=== PATIENT | female | born 1975 | race Caucasian/White ===

== ENCOUNTER 2018-10-04 15:18 | Emergency (ER) | payer MEDICAID ==
[~2018-10-04] VITALS: Ht 165.1 cm; Wt 124.5 kg
[2018-10-04 15:28] VITALS: BP 159/102
--- NOTE | 2018-10-04 15:33 | NUR ---
Dayton zuñiga in [facility] - 10/04/18 at 1534 by TEODORA PT AMBULATED TO CHAIR B AT THIS TIME
--- NOTE | 2018-10-04 15:34 | NUR ---
PT AMBULATED TO CHAIR E AT THIS TIME
--- NOTE | 2018-10-04 15:39 | NUR ---
C/O PLANTAR FASCIATIS AND BONE SPURS IN BL FEET, BUT STATES THAT LT FOOT HAS MORE PAIN. PT REPORTS INTERMITENT SHARP PAIN AT 10/10. PT DENEIS TRAUMA. +EDEMA, -ERYTHEMA. STATES SHE HAS NOT RECV'D PAIN MEDICATION FOR PAIN. MEDHX:HTN
--- NOTE | 2018-10-04 15:58 | NUR ---
PT STATES SHE HAS HAD HER TUBES TIED
--- NOTE | 2018-10-04 15:59 | NUR ---
PT AMBULATED TO ER BED 12
--- NOTE | 2018-10-04 16:50 | NUR ---
PATIENT LEFT WITHOUT BEING SEEN BY DR. BARRERA. NO FURTHER CARE PROVIDED FOR PATIENT.
== END 2018-10-04 16:50 | disposition left against medical advice (07) ==
LOC: MED 15:18
DX: M72.2 Plantar fascial fibromatosis (principal); Z53.21 Procedure and treatment not carried out due to patient leaving prior to being seen by health care provider

== ENCOUNTER 2018-11-15 14:38 | Emergency (ER) | payer MEDICAID ==
[~2018-11-15] VITALS: Ht 165.1 cm; Wt 124.3 kg
[2018-11-15 14:46] VITALS: BP 121/74
--- NOTE | 2018-11-15 15:38 | NUR ---
Patient ambulated to bed 6
--- NOTE | 2018-11-15 15:50 | NUR ---
PT BIB SELF C/O BEE STING X 2 DAYS. PT REPORTS SWELLING AND BURNING PAIN HAVE BEEN INCREASING SINCE BEE STING ON FRIDAY. PT REPORTS 5/10 BURNING PAIN. VSS. ER TO SEE PT. MEDHX:HTN RX:BP MEDS
[2018-11-15] MEDS ORDERED: hydrOXYzine HCL 25 MG TAB PO ONE (16:25)
[2018-11-15] MEDS ORDERED: diphenhydrAMINE 50 MG/ML VIAL IM ONE (16:25)
[2018-11-15] MEDS ORDERED: FAMOTIDINE 20 MG TAB PO ONE (16:25)
[2018-11-15] MEDS ORDERED: DEXAMETHASONE 10 MG/ML VIAL IM ONE (16:25)
[2018-11-15 17:33] VITALS: BP 126/74
== END 2018-11-15 17:33 | disposition home or self-care (01) ==
LOC: MED 14:38 → MLD 17:30 → MED 17:33
DX: T63.441A Toxic effect of venom of bees, accidental (unintentional), initial encounter (principal); I10 Essential (primary) hypertension; Y92.89 Other specified places as the place of occurrence of the external cause
CPT/HCPCS: 96372; 99283; J1100; J1200

== ENCOUNTER 2022-03-31 18:22 | Emergency (ER) | payer MEDICAID ==
[~2022-03-31] VITALS: Ht 165.1 cm; Wt 131.5 kg
[2022-03-31 18:40] VITALS: BP 201/93
--- NOTE | 2022-03-31 18:45 | NUR ---
PT AMBULATED BACK TO LOBBY AFTER TRIAGE
--- NOTE | 2022-03-31 21:25 | NUR ---
PT CALLED FROM INSIDE LOBBY AND OUTSIDE, NO RESPONSE
[2022-03-31 21:30] VITALS: BP 201/93
--- NOTE | 2022-03-31 21:30 | NUR ---
PATIENT LEFT WITHOUT BEING SEEN BY DR. BONNER. NO FURTHER CARE PROVIDED FOR PATIENT.
--- NOTE | 2022-03-31 21:30 | NUR ---
PTs PERSONAL PHONE CALLED, NO ANSWER
== END 2022-03-31 21:25 | disposition left against medical advice (07) ==
LOC: MED 18:22
DX: M79.662 Pain in left lower leg (principal); Z53.21 Procedure and treatment not carried out due to patient leaving prior to being seen by health care provider

== ENCOUNTER 2022-04-02 04:03 | Emergency (ER) | payer MEDICAID, OTHER ==
[~2022-04-02] VITALS: Ht 165.1 cm; Wt 131.5 kg
[2022-04-02 04:45] VITALS: BP 185/115
--- NOTE | 2022-04-02 04:57 | NUR ---
TO BED 8
[2022-04-02] MEDS ORDERED: KETOROLAC 15 MG/ML VIAL IM ONE (05:40)
[2022-04-02] MEDS ORDERED: LID5T TP (05:47)
[2022-04-02] MEDS ORDERED: DICL100G31 TP (05:47)
[2022-04-02 06:20] VITALS: BP 185/115
--- NOTE | 2022-04-02 06:20 | NUR ---
Patient discharged with v/s stable. Written and verbal after care instructions given and explained. Patient alert, oriented and verbalized understanding of instructions. Ambulatory with steady gait. All questions addressed prior to discharge. ID band removed. Patient advised to follow up with PMD. Rx of LIDODERM,DICLOFENAC given. Patient educated on indication of medication including possible reaction and side effects. Opportunity to ask questions provided and answered.
== END 2022-04-02 06:20 | disposition home or self-care (01) ==
LOC: MED 04:03
DX: S89.92XA Unspecified injury of left lower leg, initial encounter (principal); I10 Essential (primary) hypertension; E11.9 Type 2 diabetes mellitus without complications; Z79.4 Long term (current) use of insulin; Z79.899 Other long term (current) drug therapy; W18.30XA Fall on same level, unspecified, initial encounter; Y93.89 Activity, other specified; Y92.89 Other specified places as the place of occurrence of the external cause; Y99.8 Other external cause status
CPT/HCPCS: 96372; 99283; J1885

== ENCOUNTER 2023-04-05 11:46 | Emergency (ER) | payer MEDICAID, OTHER ==
[~2023-04-05] VITALS: Ht 165.1 cm; Wt 138.9 kg
[~2023-04-05 11:46] MED LIST: DICL100G31 TP; LID5T TP
[2023-04-05 12:26] VITALS: BP 135/112; PULSE 110; RESP 19; TEMP 98.5; O2SAT 98
[2023-04-05] MEDS ORDERED: IBUP-2213 PO (14:55)
[2023-04-05] MEDS ORDERED: KETOROLAC 30 MG/ML VIAL IM ONE (14:55)
[2023-04-05 15:00] VITALS: BP 135/112; PULSE 110; RESP 19; TEMP 98.5; O2SAT 98
== END 2023-04-05 15:00 | disposition home or self-care (01) ==
LOC: MED 11:46
DX: R51.9 Headache, unspecified (principal); H92.02 Otalgia, left ear; I10 Essential (primary) hypertension
CPT/HCPCS: 70480; 99284

== ENCOUNTER 2023-05-14 13:48 | Inpatient (IN) | payer MEDICAID ==
[~2023-05-14] VITALS: Ht 165.1 cm; Wt 144.7 kg
[~2023-05-14 13:48] MED LIST changes: +IBUP-2213 PO
[2023-05-14 14:24] VITALS: BP 150/99; PULSE 118; RESP 17; TEMP 97.4; O2SAT 98
[2023-05-14 15:46] LABS: FLU A ANTIGEN negative (NEGATIVE); FLU B ANTIGEN NEGATIVE (NEGATIVE)
[2023-05-14] MEDS ORDERED: ONDANSETRON 4 MG/2 ML VIAL IVP ONE (16:45)
[2023-05-14] MEDS ORDERED: KETOROLAC 30 MG/ML VIAL IVP ONE (16:45)
[2023-05-14] MEDS ORDERED: NACL 0.9% 1,000 ML IV SCH (16:45)
[2023-05-14 17:44] LABS: HEMOGLOBIN 13.9 g/dL (12.0-16.0); MEAN CORPUSCULAR HEMOGLOBIN 29 pg (27-31); MEAN CORPUSCULAR HGB CONC 33 g/dL (33-37); MEAN CORPUSCULAR VOLUME 87.3 fL (80-94); PLATELET COUNT (AUTO) 173 K/uL (140-450); RED BLOOD CELL COUNT(AUTO) 4.81 MIL/uL (4.20-5.40); RED CELL DISTRIBUTION WIDTH 14.4 % (11.6-13.7)
[2023-05-14 17:51] LABS: APPEARANCE,URINE CLOUDY (CLEAR); BILIRUBIN,URINE 1+ (NEGATIVE); BLOOD, URINE 3+ (NEGATIVE); COLOR,URINE BROWN (YELLOW); LEUKOCYTE ESTERASE ,URINE 2+ (NEGATIVE); NITRITE, URINE POSITIVE (NEGATIVE); PH,URINE 5.5 (5.0-9.0); PROTEIN,URINE 3+ (NEGATIVE); UGLUCOSE NEGATIVE (NEGATIVE); UROBILINOGEN,URINE 0.2 EU/dL (0.2 - 1)
[2023-05-14] MEDS ORDERED: cefTRIAXone 2,000 MG in DEXTROSE 5% 100 ML IV ONE (17:55)
[2023-05-14 18:02] LABS: ANION GAP 18.6 (8-16); CALCIUM 8.3 mg/dL (8.5-10.1); CARBON DIOXIDE 23.3 mmol/L (21-32); CREATININE 1.8 mg/dL (0.6-1.3); POTASSIUM 3.9 mmol/L (3.5-5.1)
[2023-05-14 18:06] LABS: ALBUMIN 2.4 g/dL (3.4-5.0); BACTERIA,URINE 10-30 (MOD) /HPF (None Seen); BILIRUBIN,DIRECT 0.7 mg/dL (0.0-0.3); RBC,URINE 20-50 /HPF (0-5); SQUAMOUS EPITHELIAL CELL,UR 4-10 (MOD) /LPF (0-3 (FEW)); TOTAL BILIRUBIN 1.5 mg/dL (0.0-1.0); TOTAL PROTEIN, SERUM 6.8 g/dL (6.4-8.2)
[2023-05-14 18:08] LABS: ICTOTEST NEGATIVE (NEGATIVE)
[2023-05-14 18:20] LABS: LYMPHOCYTES % (MANUAL) 1 % (20-46); METAMYELOCYTES % 2 % (0-0); MONOCYTES % (MANUAL) 4 % (5-12); PLATELET ESTIMATE ADEQUATE; PROMYELOCYTES % 6 % (0-0)
[2023-05-14] MEDS ORDERED: NACL 0.9% 2,000 ML IV ONE (19:00)
[2023-05-14] MEDS ORDERED: cefTRIAXone 1,000 MG VIAL ONE (19:06)
[2023-05-14 19:40] LABS: LACTIC ACID 4.2 mmol/L (0.4-2.0)
[2023-05-14] MEDS: NACL 0.9% 1,000 ML IV SCH (19:40)
[2023-05-14] MEDS ORDERED: DEXTROSE 50% 50 ML SYR IVP PRN (19:40)
[2023-05-14] MEDS ORDERED: LORazepam 1 MG TAB PO PRN (19:40)
[2023-05-14] MEDS ORDERED: ALBUTEROL 0.083% 2.5 MG/3 ML NEBU INH PRN (19:40)
[2023-05-14] MEDS ORDERED: ONDANSETRON 4 MG/2 ML VIAL IVP PRN (19:40)
[2023-05-14] MEDS ORDERED: ACETAMINOPHEN 325 MG TAB PO PRN (19:40)
[2023-05-14] MEDS ORDERED: cefTRIAXone 2,000 MG VIAL ONE (19:46)
[2023-05-14] MEDS: BLOOD GLUCOSE MONITORING 1 DEV DEV FS SCH (21:54)
[2023-05-14] MEDS ORDERED: PIPERACILLIN/TAZOBACTAM 3.375 GM VIAL IV ONE (22:17)
[2023-05-14] MEDS: PIPERACILLIN/TAZOBACTAM 3.375 GM in DEXTROSE 5% 50 ML IV SCH (22:38)
[2023-05-15] VITALS (7 sets, daily range): BP systolic 110–125; BP diastolic 59–76; PULSE 100–119; RESP 18–19; TEMP 97.2–98.1; O2SAT 90–95
[2023-05-15] MEDS: HYDROcodone/APAP 5/325 MG 1 TAB TAB PO PRN ×3 (02:20→14:32)
[2023-05-15] MEDS ORDERED: PIPERACILLIN/TAZOBACTAM 3.375 GM VIAL IV ONE (04:45)
[2023-05-15] MEDS: PIPERACILLIN/TAZOBACTAM 3.375 GM in DEXTROSE 5% 50 ML IV SCH ×3 (05:09→22:48)
[2023-05-15] MEDS: NACL 0.9% 1,000 ML IV SCH ×2 (05:40→15:40)
[2023-05-15] MEDS: BLOOD GLUCOSE MONITORING 1 DEV DEV FS SCH ×4 (07:20→20:40)
[2023-05-15 07:23] LABS: BASOPHILS % (AUTO) 0.2 % (0.0-2.0); EOSINOPHILS # (AUTO) 0.1 K/uL (0-0.4); EOSINOPHILS % (AUTO) 0.6 % (0.0-4.0); HEMATOCRIT 36.2 % (36-48); HEMOGLOBIN 12.1 g/dL (12.0-16.0); LYMPHOCYTES # (AUTO) 0.4 K/uL (2.5-16.5); LYMPHOCYTES % (AUTO) 2.3 % (20.5-51.1); MEAN CORPUSCULAR HEMOGLOBIN 29 pg (27-31); MEAN CORPUSCULAR HGB CONC 33 g/dL (33-37); MEAN CORPUSCULAR VOLUME 86.9 fL (80-94); MONOCYTES # (AUTO) 0.7 K/uL (0.8-1.0); MONOCYTES % (AUTO) 4.6 % (1.7-9.3); NEUTROPHILS # (AUTO) 14.3 K/uL (1.8-7.7); NEUTROPHILS % (AUTO) 92.3 % (42.2-75.2); PLATELET COUNT (AUTO) 121 K/uL (140-450); RED BLOOD CELL COUNT(AUTO) 4.17 MIL/uL (4.20-5.40); RED CELL DISTRIBUTION WIDTH 14.2 % (11.6-13.7); WHITE BLOOD COUNT (AUTO) 15.5 K/uL (4.8-10.8)
[2023-05-15 07:48] LABS: ANION GAP 15.9 (8-16); CALCIUM 7.6 mg/dL (8.5-10.1); CARBON DIOXIDE 24.8 mmol/L (21-32); CREATININE 2.1 mg/dL (0.6-1.3); POTASSIUM 3.7 mmol/L (3.5-5.1)
[2023-05-15] MEDS: MORPHINE SULFATE 2 MG/ML SYR IVP PRN ×2 (09:21→18:12)
[2023-05-15] MEDS: TAMSULOSIN 0.4 MG CAP PO SCH (14:34)
[2023-05-16] MEDS: NACL 0.9% 1,000 ML IV SCH ×3 (01:40→21:09)
[2023-05-16 04:00] VITALS: BP 131/80; PULSE 102; RESP 19; TEMP 98.1; O2SAT 91
[2023-05-16] MEDS: PIPERACILLIN/TAZOBACTAM 3.375 GM in DEXTROSE 5% 50 ML IV SCH ×3 (06:02→21:19)
[2023-05-16] MEDS: BLOOD GLUCOSE MONITORING 1 DEV DEV FS SCH ×4 (06:28→20:07)
[2023-05-16 06:49] LABS: BASOPHILS % (AUTO) 0.2 % (0.0-2.0); EOSINOPHILS # (AUTO) 0.2 K/uL (0-0.4); EOSINOPHILS % (AUTO) 1.3 % (0.0-4.0); HEMATOCRIT 34.3 % (36-48); HEMOGLOBIN 11.5 g/dL (12.0-16.0); LYMPHOCYTES # (AUTO) 0.7 K/uL (2.5-16.5); LYMPHOCYTES % (AUTO) 4.6 % (20.5-51.1); MEAN CORPUSCULAR HEMOGLOBIN 29 pg (27-31); MEAN CORPUSCULAR HGB CONC 33 g/dL (33-37); MEAN CORPUSCULAR VOLUME 86.4 fL (80-94); MONOCYTES # (AUTO) 0.7 K/uL (0.8-1.0); MONOCYTES % (AUTO) 4.7 % (1.7-9.3); NEUTROPHILS # (AUTO) 13.2 K/uL (1.8-7.7); NEUTROPHILS % (AUTO) 89.2 % (42.2-75.2); PLATELET COUNT (AUTO) 108 K/uL (140-450); RED BLOOD CELL COUNT(AUTO) 3.97 MIL/uL (4.20-5.40); RED CELL DISTRIBUTION WIDTH 14.4 % (11.6-13.7); WHITE BLOOD COUNT (AUTO) 14.8 K/uL (4.8-10.8)
[2023-05-16 07:11] LABS: ANION GAP 14.5 (8-16); CALCIUM 7.9 mg/dL (8.5-10.1); CARBON DIOXIDE 22.9 mmol/L (21-32); CREATININE 1.6 mg/dL (0.6-1.3); POTASSIUM 3.4 mmol/L (3.5-5.1)
[2023-05-16 08:00] VITALS: BP 132/78; PULSE 103; RESP 18; TEMP 98.5; O2SAT 92
[2023-05-16] MEDS ORDERED: POTASSIUM CHLORIDE 10 MEQ TABER PO SCH (08:30)
[2023-05-16] MEDS: TAMSULOSIN 0.4 MG CAP PO SCH (08:45)
[2023-05-16] MEDS: MORPHINE SULFATE 2 MG/ML SYR IVP PRN (11:45)
[2023-05-16] MEDS: INSULIN LISPRO SLIDING SCALE 100 UNITS/ML VIAL SUBQ PRN ×2 (11:47→20:33)
[2023-05-16 16:00] VITALS: BP 164/88; PULSE 113; RESP 18; TEMP 97.9; O2SAT 93
[2023-05-16 20:00] VITALS: BP 130/75; PULSE 102; PULSE 104; RESP 18; RESP 19; TEMP 98.7; O2SAT 100; O2SAT 91
[2023-05-16 20:52] VITALS: PULSE 117; RESP 18; O2SAT 98; O2SAT 99
[2023-05-17 04:00] VITALS: BP 138/77; PULSE 100; RESP 19; TEMP 97.8; O2SAT 100
[2023-05-17] MEDS: PIPERACILLIN/TAZOBACTAM 3.375 GM in DEXTROSE 5% 50 ML IV SCH ×3 (04:44→21:37)
[2023-05-17] MEDS: MORPHINE SULFATE 2 MG/ML SYR IVP PRN ×2 (06:13→17:56)
[2023-05-17] MEDS: BLOOD GLUCOSE MONITORING 1 DEV DEV FS SCH ×4 (06:31→21:39)
[2023-05-17] MEDS: INSULIN LISPRO SLIDING SCALE 100 UNITS/ML VIAL SUBQ PRN ×3 (06:33→21:39)
[2023-05-17 07:24] LABS: BASOPHILS % (AUTO) 0.2 % (0.0-2.0); EOSINOPHILS # (AUTO) 0.1 K/uL (0-0.4); EOSINOPHILS % (AUTO) 1.1 % (0.0-4.0); HEMATOCRIT 35.9 % (36-48); HEMOGLOBIN 12.1 g/dL (12.0-16.0); LYMPHOCYTES # (AUTO) 0.8 K/uL (2.5-16.5); LYMPHOCYTES % (AUTO) 6.4 % (20.5-51.1); MEAN CORPUSCULAR HEMOGLOBIN 29 pg (27-31); MEAN CORPUSCULAR HGB CONC 34 g/dL (33-37); MEAN CORPUSCULAR VOLUME 85.8 fL (80-94); MONOCYTES # (AUTO) 1.1 K/uL (0.8-1.0); MONOCYTES % (AUTO) 9.5 % (1.7-9.3); NEUTROPHILS % (AUTO) 82.8 % (42.2-75.2); PLATELET COUNT (AUTO) 120 K/uL (140-450); RED BLOOD CELL COUNT(AUTO) 4.19 MIL/uL (4.20-5.40); RED CELL DISTRIBUTION WIDTH 14.4 % (11.6-13.7)
[2023-05-17 07:35] LABS: ANION GAP 11.6 (8-16); CARBON DIOXIDE 24.6 mmol/L (21-32); CREATININE 1.1 mg/dL (0.6-1.3); POTASSIUM 3.2 mmol/L (3.5-5.1)
[2023-05-17 08:00] VITALS: BP 154/89; PULSE 102; PULSE 95; RESP 18; RESP 19; TEMP 97.8; O2SAT 91; O2SAT 93
[2023-05-17] MEDS ORDERED: POTASSIUM CHLORIDE 10 MEQ TABER PO SCH (08:45)
[2023-05-17] MEDS ORDERED: SODIUM CHLORIDE 1 GM TAB PO SCH (08:45)
[2023-05-17] MEDS ORDERED: POTASSIUM CHLORIDE 10 MEQ TABER PO ONE ×2 (09:05→10:40)
[2023-05-17] MEDS ORDERED: FUROSEMIDE 20 MG/2 ML VIAL IVP SCH (09:30)
[2023-05-17] MEDS: TAMSULOSIN 0.4 MG CAP PO SCH (09:33)
[2023-05-17 20:00] VITALS: BP 146/79; PULSE 100; RESP 19; TEMP 98; O2SAT 92
[2023-05-17 20:30] VITALS: O2SAT 98
[2023-05-18 04:00] VITALS: BP 155/92; PULSE 98; RESP 19; TEMP 97.4; O2SAT 98
[2023-05-18] MEDS: PIPERACILLIN/TAZOBACTAM 3.375 GM in DEXTROSE 5% 50 ML IV SCH ×3 (05:10→20:34)
[2023-05-18] MEDS: INSULIN LISPRO SLIDING SCALE 100 UNITS/ML VIAL SUBQ PRN ×2 (06:43→20:37)
[2023-05-18] MEDS: BLOOD GLUCOSE MONITORING 1 DEV DEV FS SCH ×4 (06:44→20:38)
[2023-05-18 08:00] VITALS: PULSE 101; RESP 20; O2SAT 96
[2023-05-18 09:11] LABS: ANION GAP 8.6 (8-16); CALCIUM 8.1 mg/dL (8.5-10.1); CARBON DIOXIDE 27.5 mmol/L (21-32); CREATININE 0.9 mg/dL (0.6-1.3); POTASSIUM 3.1 mmol/L (3.5-5.1)
[2023-05-18] MEDS ORDERED: POTASSIUM CHLORIDE 10 MEQ TABER PO ONE (09:40)
[2023-05-18] MEDS: TAMSULOSIN 0.4 MG CAP PO SCH (10:08)
[2023-05-18 13:27] VITALS: BP 145/85; PULSE 101; RESP 19; TEMP 97.8; O2SAT 96
[2023-05-18] MEDS: CLONIDINE HYDROCHLORIDE 0.1 MG TAB PO PRN (18:08)
[2023-05-18 20:00] VITALS: BP 152/90; PULSE 101; RESP 20; TEMP 97.6; O2SAT 97
[2023-05-18 20:53] VITALS: PULSE 95; RESP 22; O2SAT 94
[2023-05-19 04:00] VITALS: BP 170/84; PULSE 87; RESP 18; TEMP 97.9; O2SAT 97
[2023-05-19] MEDS: PIPERACILLIN/TAZOBACTAM 3.375 GM in DEXTROSE 5% 50 ML IV SCH (04:51)
[2023-05-19] MEDS: CLONIDINE HYDROCHLORIDE 0.1 MG TAB PO PRN ×2 (05:04→17:06)
[2023-05-19 06:28] LABS: BASOPHILS # (AUTO) 0.1 K/uL (0.00-0.22); BASOPHILS % (AUTO) 0.3 % (0.0-2.0); EOSINOPHILS # (AUTO) 0.2 K/uL (0-0.4); HEMATOCRIT 36.3 % (36-48); HEMOGLOBIN 12.3 g/dL (12.0-16.0); LYMPHOCYTES # (AUTO) 1.5 K/uL (2.5-16.5); LYMPHOCYTES % (AUTO) 7.4 % (20.5-51.1); MEAN CORPUSCULAR HEMOGLOBIN 28 pg (27-31); MEAN CORPUSCULAR HGB CONC 34 g/dL (33-37); MEAN CORPUSCULAR VOLUME 84.1 fL (80-94); MONOCYTES # (AUTO) 2.5 K/uL (0.8-1.0); MONOCYTES % (AUTO) 12.6 % (1.7-9.3); NEUTROPHILS # (AUTO) 15.7 K/uL (1.8-7.7); NEUTROPHILS % (AUTO) 78.7 % (42.2-75.2); PLATELET COUNT (AUTO) 131 K/uL (140-450); RED BLOOD CELL COUNT(AUTO) 4.31 MIL/uL (4.20-5.40); RED CELL DISTRIBUTION WIDTH 15.1 % (11.6-13.7); WHITE BLOOD COUNT (AUTO) 19.9 K/uL (4.8-10.8)
[2023-05-19] MEDS: BLOOD GLUCOSE MONITORING 1 DEV DEV FS SCH ×4 (06:48→21:20)
[2023-05-19 06:50] LABS: ANION GAP 11.7 (8-16); CALCIUM 7.8 mg/dL (8.5-10.1); CARBON DIOXIDE 26.7 mmol/L (21-32); CREATININE 0.8 mg/dL (0.6-1.3); POTASSIUM 3.4 mmol/L (3.5-5.1)
[2023-05-19] MEDS: TAMSULOSIN 0.4 MG CAP PO SCH (08:20)
[2023-05-19 08:45] VITALS: PULSE 87; RESP 18; O2SAT 91
[2023-05-19 08:46] VITALS: PULSE 87
[2023-05-19] MEDS ORDERED: KCL 20 MEQ IN 100 mL PREMIX 200 ML IV SCH (09:27)
[2023-05-19] MEDS ORDERED: SODIUM CHLORIDE 1 GM TAB PO SCH (09:28)
[2023-05-19] MEDS: amLODIPine 5 MG TAB PO SCH (09:39)
[2023-05-19] MEDS: INSULIN LISPRO SLIDING SCALE 100 UNITS/ML VIAL SUBQ PRN (11:05)
[2023-05-19 14:46] VITALS: PULSE 87; RESP 20; O2SAT 94
[2023-05-19 17:01] VITALS: BP 160/93; PULSE 92; RESP 18; TEMP 97.9; O2SAT 97
[2023-05-19 20:00] VITALS: BP 147/72; PULSE 87; RESP 19; TEMP 98.1; O2SAT 96
[2023-05-20] VITALS (7 sets, daily range): BP systolic 118–152; BP diastolic 52–90; PULSE 72–96; RESP 18–20; TEMP 96.8–98.4; O2SAT 92–98
[2023-05-20] MEDS: PIPERACILLIN/TAZOBACTAM 3.375 GM in DEXTROSE 5% 50 ML IV SCH ×2 (04:56→12:11)
[2023-05-20] MEDS: BLOOD GLUCOSE MONITORING 1 DEV DEV FS SCH ×4 (06:32→20:02)
[2023-05-20 06:47] LABS: HEMATOCRIT 36.8 % (36-48); HEMOGLOBIN 12.1 g/dL (12.0-16.0); MEAN CORPUSCULAR HEMOGLOBIN 28 pg (27-31); MEAN CORPUSCULAR HGB CONC 33 g/dL (33-37); MEAN CORPUSCULAR VOLUME 84.7 fL (80-94); PLATELET COUNT (AUTO) 167 K/uL (140-450); RED BLOOD CELL COUNT(AUTO) 4.34 MIL/uL (4.20-5.40); RED CELL DISTRIBUTION WIDTH 14.8 % (11.6-13.7); WHITE BLOOD COUNT (AUTO) 23.5 K/uL (4.8-10.8)
[2023-05-20 07:12] LABS: ANION GAP 11.2 (8-16); CALCIUM 7.7 mg/dL (8.5-10.1); CARBON DIOXIDE 28.6 mmol/L (21-32); CREATININE 0.8 mg/dL (0.6-1.3); POTASSIUM 3.8 mmol/L (3.5-5.1)
[2023-05-20 07:59] LABS: LYMPHOCYTES % (MANUAL) 9 % (20-46)
[2023-05-20 08:00] LABS: MONOCYTES % (MANUAL) 10 % (5-12)
[2023-05-20] MEDS: amLODIPine 5 MG TAB PO SCH (08:25)
[2023-05-20] MEDS: TAMSULOSIN 0.4 MG CAP PO SCH (08:26)
[2023-05-20] MEDS ORDERED: POTASSIUM CHLORIDE 10 MEQ TABER PO SCH (10:25)
[2023-05-20] MEDS ORDERED: TAMS0.4C96 PO (14:22)
[2023-05-20] MEDS ORDERED: AMLO-3 PO (14:22)
[2023-05-20] MEDS ORDERED: CIPR500T4 PO (14:22)
[2023-05-20] MEDS: LEVOFLOXACIN 750 MG/D5W PREMIX 150 ML IV SCH (18:23)
[2023-05-20] MEDS: INSULIN LISPRO SLIDING SCALE 100 UNITS/ML VIAL SUBQ PRN (20:06)
[2023-05-21 04:00] VITALS: BP 149/84; PULSE 88; RESP 20; TEMP 98.8; O2SAT 95
[2023-05-21] MEDS: BLOOD GLUCOSE MONITORING 1 DEV DEV FS SCH ×4 (06:29→20:28)
[2023-05-21 06:43] LABS: CALCIUM 7.8 mg/dL (8.5-10.1); CARBON DIOXIDE 27.2 mmol/L (21-32); CREATININE 0.8 mg/dL (0.6-1.3); POTASSIUM 4.2 mmol/L (3.5-5.1)
[2023-05-21] MEDS: amLODIPine 5 MG TAB PO SCH (08:26)
[2023-05-21] MEDS: TAMSULOSIN 0.4 MG CAP PO SCH (08:26)
[2023-05-21 08:34] VITALS: PULSE 86; RESP 20; O2SAT 97
[2023-05-21 08:35] VITALS: BP 148/85; PULSE 86; RESP 20; TEMP 98.7; O2SAT 97
[2023-05-21 09:39] LABS: BASOPHILS # (AUTO) 0.1 K/uL (0.00-0.22); BASOPHILS % (AUTO) 0.2 % (0.0-2.0); EOSINOPHILS # (AUTO) 0.2 K/uL (0-0.4); EOSINOPHILS % (AUTO) 0.9 % (0.0-4.0); HEMATOCRIT 35.3 % (36-48); HEMOGLOBIN 11.7 g/dL (12.0-16.0); LYMPHOCYTES # (AUTO) 1.4 K/uL (2.5-16.5); LYMPHOCYTES % (AUTO) 6.3 % (20.5-51.1); MEAN CORPUSCULAR HEMOGLOBIN 29 pg (27-31); MEAN CORPUSCULAR HGB CONC 33 g/dL (33-37); MEAN CORPUSCULAR VOLUME 85.9 fL (80-94); MONOCYTES # (AUTO) 1.6 K/uL (0.8-1.0); MONOCYTES % (AUTO) 7.1 % (1.7-9.3); NEUTROPHILS # (AUTO) 18.9 K/uL (1.8-7.7); NEUTROPHILS % (AUTO) 85.5 % (42.2-75.2); PLATELET COUNT (AUTO) 206 K/uL (140-450); RED BLOOD CELL COUNT(AUTO) 4.11 MIL/uL (4.20-5.40); RED CELL DISTRIBUTION WIDTH 15.6 % (11.6-13.7); WHITE BLOOD COUNT (AUTO) 22.1 K/uL (4.8-10.8)
[2023-05-21] MEDS ORDERED: FUROSEMIDE 20 MG/2 ML VIAL IVP SCH (14:14)
[2023-05-21 16:54] VITALS: BP 146/85; PULSE 87; RESP 20; TEMP 99; O2SAT 96
[2023-05-21] MEDS: LEVOFLOXACIN 750 MG/D5W PREMIX 150 ML IV SCH (17:34)
[2023-05-21 20:00] VITALS: BP 124/55; PULSE 88; RESP 18; TEMP 98.3; O2SAT 92
[2023-05-21 20:24] VITALS: O2SAT 96
[2023-05-22] VITALS (7 sets, daily range): BP systolic 123–157; BP diastolic 62–74; PULSE 88–94; RESP 18–20; TEMP 97.1–98.4; O2SAT 94–97
[2023-05-22 06:44] LABS: BASOPHILS # (AUTO) 0.1 K/uL (0.00-0.22); BASOPHILS % (AUTO) 0.3 % (0.0-2.0); EOSINOPHILS # (AUTO) 0.2 K/uL (0-0.4); EOSINOPHILS % (AUTO) 0.9 % (0.0-4.0); HEMATOCRIT 33.9 % (36-48); HEMOGLOBIN 11.3 g/dL (12.0-16.0); LYMPHOCYTES # (AUTO) 1.3 K/uL (2.5-16.5); LYMPHOCYTES % (AUTO) 7.4 % (20.5-51.1); MEAN CORPUSCULAR HEMOGLOBIN 29 pg (27-31); MEAN CORPUSCULAR HGB CONC 34 g/dL (33-37); MEAN CORPUSCULAR VOLUME 85.5 fL (80-94); MONOCYTES # (AUTO) 1.2 K/uL (0.8-1.0); MONOCYTES % (AUTO) 6.5 % (1.7-9.3); NEUTROPHILS # (AUTO) 15.4 K/uL (1.8-7.7); NEUTROPHILS % (AUTO) 84.9 % (42.2-75.2); PLATELET COUNT (AUTO) 276 K/uL (140-450); RED BLOOD CELL COUNT(AUTO) 3.97 MIL/uL (4.20-5.40); RED CELL DISTRIBUTION WIDTH 15.2 % (11.6-13.7); WHITE BLOOD COUNT (AUTO) 18.1 K/uL (4.8-10.8)
[2023-05-22] MEDS: BLOOD GLUCOSE MONITORING 1 DEV DEV FS SCH ×4 (06:45→21:20)
[2023-05-22 07:07] LABS: ANION GAP 13.5 (8-16); CARBON DIOXIDE 25.7 mmol/L (21-32); CREATININE 0.8 mg/dL (0.6-1.3); POTASSIUM 4.2 mmol/L (3.5-5.1)
[2023-05-22] MEDS: amLODIPine 5 MG TAB PO SCH (08:14)
[2023-05-22] MEDS: TAMSULOSIN 0.4 MG CAP PO SCH (08:14)
[2023-05-22] MEDS: SODIUM CHLORIDE 1 GM TAB PO SCH (11:28)
[2023-05-22] MEDS: INSULIN LISPRO SLIDING SCALE 100 UNITS/ML VIAL SUBQ PRN (16:23)
[2023-05-22] MEDS: LEVOFLOXACIN 750 MG/D5W PREMIX 150 ML IV SCH (16:53)
[2023-05-22] MEDS ORDERED: ZOLPIDEM 5 MG TAB PO PRN (22:20)
[2023-05-23 04:00] VITALS: BP 124/70; PULSE 86; RESP 18; TEMP 99; O2SAT 94
[2023-05-23] MEDS: BLOOD GLUCOSE MONITORING 1 DEV DEV FS SCH ×2 (06:37→11:06)
[2023-05-23 07:08] LABS: BASOPHILS % (AUTO) 0.2 % (0.0-2.0); EOSINOPHILS # (AUTO) 0.1 K/uL (0-0.4); HEMATOCRIT 33.5 % (36-48); HEMOGLOBIN 11.4 g/dL (12.0-16.0); LYMPHOCYTES # (AUTO) 1.3 K/uL (2.5-16.5); LYMPHOCYTES % (AUTO) 9.1 % (20.5-51.1); MEAN CORPUSCULAR HEMOGLOBIN 29 pg (27-31); MEAN CORPUSCULAR HGB CONC 34 g/dL (33-37); MONOCYTES # (AUTO) 1.1 K/uL (0.8-1.0); MONOCYTES % (AUTO) 7.5 % (1.7-9.3); NEUTROPHILS % (AUTO) 82.2 % (42.2-75.2); PLATELET COUNT (AUTO) 329 K/uL (140-450); RED BLOOD CELL COUNT(AUTO) 3.89 MIL/uL (4.20-5.40); RED CELL DISTRIBUTION WIDTH 15.2 % (11.6-13.7); WHITE BLOOD COUNT (AUTO) 14.6 K/uL (4.8-10.8)
[2023-05-23 07:30] LABS: ANION GAP 12.3 (8-16); CALCIUM 7.9 mg/dL (8.5-10.1); CARBON DIOXIDE 25.8 mmol/L (21-32); CREATININE 0.8 mg/dL (0.6-1.3); POTASSIUM 4.1 mmol/L (3.5-5.1)
[2023-05-23 08:00] VITALS: BP 112/42; PULSE 89; RESP 18; TEMP 97.8; O2SAT 95
[2023-05-23] MEDS: TAMSULOSIN 0.4 MG CAP PO SCH (08:42)
[2023-05-23] MEDS: amLODIPine 5 MG TAB PO SCH (08:42)
[2023-05-23] MEDS: SODIUM CHLORIDE 1 GM TAB PO SCH (11:06)
[2023-05-23] MEDS: INSULIN LISPRO SLIDING SCALE 100 UNITS/ML VIAL SUBQ PRN (11:07)
[2023-05-24] MEDS ORDERED: SODIUM CHLORIDE 1 GM TAB PO SCH (09:00)
== END 2023-05-23 13:07 | disposition home or self-care (01) | DRG 720 ==
LOC: MED 13:48 → MTU 19:51
PROVIDERS: ADMIT Family Medicine; ATTEND Family Medicine
DX: A41.59 Other Gram-negative sepsis (principal); N17.0 Acute kidney failure with tubular necrosis; E43 Unspecified severe protein-calorie malnutrition; E87.1 Hypo-osmolality and hyponatremia; Z68.43 Body mass index [BMI] 50.0-59.9, adult; E83.51 Hypocalcemia; J18.9 Pneumonia, unspecified organism; N13.6 Pyonephrosis; G47.33 Obstructive sleep apnea (adult) (pediatric); E11.9 Type 2 diabetes mellitus without complications; E66.01 Morbid (severe) obesity due to excess calories; I10 Essential (primary) hypertension; D25.9 Leiomyoma of uterus, unspecified; E87.6 Hypokalemia; R65.20 Severe sepsis without septic shock; N21.0 Calculus in bladder; Z20.822 Contact with and (suspected) exposure to COVID-19; Z83.3 Family history of diabetes mellitus; Z82.49 Family history of ischemic heart disease and other diseases of the circulatory system; B96.1 Klebsiella pneumoniae [K. pneumoniae] as the cause of diseases classified elsewhere
CPT/HCPCS: 36415; 71045; 76705; 76770; 80048; 80076; 81001; 82150; 82948; 83605; 83690; 83735; 83880; 85025; 87040; 87081; 87086; 94640; 96361; 96365; 96375; 99291; J0696; J1815; J1885; J1940; J1956; J2270; J2405; J2543; J3480; J7060; J7613; Q0092